=== PATIENT | male | born 1960 | race Caucasian/White ===

== ENCOUNTER 2017-02-12 07:48 | Emergency (ER) | payer OTHER ==
[2017-02-12] MEDS ORDERED: Ketorolac Tromethamine 60 MG/2 ML VIAL ONE (08:23)
== END 2017-02-12 09:05 | disposition home or self-care (01) ==
LOC: ERS 07:48
DX: M54.5 Low back pain (principal); R20.2 Paresthesia of skin; E11.9 Type 2 diabetes mellitus without complications; M48.00 Spinal stenosis, site unspecified; E78.5 Hyperlipidemia, unspecified; I10 Essential (primary) hypertension; F32.9 Major depressive disorder, single episode, unspecified; F17.210 Nicotine dependence, cigarettes, uncomplicated; Z79.4 Long term (current) use of insulin; Z79.899 Other long term (current) drug therapy
CPT/HCPCS: 96372; J1885

== ENCOUNTER 2017-03-26 12:41 | Observation (INO) | payer OTHER ==
[2017-03-26] MEDS ORDERED: Ondansetron HCl/PF 4 MG/2 ML Vial ONE (13:18)
[2017-03-26] MEDS ORDERED: Morphine 4 MG/ML VIAL ONE (13:18)
[2017-03-26 13:30] LABS: #Basophils 0.1 thou/uL (0.0-0.2); #Eosinphils 0.3 thou/uL (0.0-0.7); #Lymphocytes 3.2 thou/uL (1.20-3.40); #Monocytes 0.7 thou/uL (0.11-0.59); #Neutrophils 6.8 thou/uL (1.40-6.50); %Basophils 0.9 % (0.0-1.0); %Eosinophils 3.1 % (0.0-10.0); %Lymphocytes 28.3 % (21.0-51.0); %Monocytes 6.6 % (0.0-10.0); Mean Platelet Volume 6.6 fL (7.4-10.4); Red Blood Cell (RBC) Count 4.42 mill/uL (4.70-6.10); White Blood Cell (WBC) Count 11.2 thou/uL (4.8-10.8)
[2017-03-26] MEDS ORDERED: Iopamidol 370 76% 100 ML VIAL ONE (13:37)
--- NOTE | 2017-03-26 13:40 | RAD ---
PORTABLE CHEST: History Chest pain, tachycardia. FINDINGS: Heart size is within normal limits. There are unremarkable-appearing mediastinal structures. The haley ngs are clear of infiltrates. IMPRESSION: No active intrathoracic disease. POS: [facility]
[2017-03-26 13:58] LABS: ALT (SGPT) 12 U/L (8-55); AST (SGOT) 13 U/L (5-34); Alkaline Phosphatase 89 U/L (40-150); Anion Gap 12 mmol/L (10-20); BUN (Urea Nitrogen) 15 mg/dL (8.4-25.7); Bilirubin, Total 0.5 mg/dL (0.2-1.2); CK (CPK) 47 U/L (30-200); Calc. Creatinine Clearance 0 mL/min (70-130); Carbon Dioxide 30 mmol/L (22-29); Chloride 98 mmol/L (98-107); Estimated GFR-MDRD Greater than 90; Globulin 3.9 g/dL (2.4-3.5); Lipase Less than 4 U/L (8-78); Protein, Total 8.1 g/dL (6.0-8.3)
[2017-03-26 13:59] LABS: Troponin I Less than 0.010 ng/mL (< 0.028)
[2017-03-26 15:22] LABS: Bilirubin Negative (Negative); Blood, Urine Trace (Negative); Glucose, Urine (Dipstick) Negative (Negative); Ketone, Urine Negative (Negative); Nitrite Negative (Negative); Protein, Urine (Dipstick) Negative (Neg-Trace); Urobilinogen 0.2 mg/dL (0.2-1.0)
[2017-03-26 15:23] LABS: Acetaminophen Less than 6.0 mcg/mL (10.0-30.0); Salicylate Less than 8.0 mg/dL (15.0-30.0)
[2017-03-26 15:35] LABS: Amphetamine Detected (NotDetected); Methadone Not Detected (NotDetected); Methamphetamine Detected (NotDetected)
[2017-03-26 15:38] LABS: Bacteria/HPF None Seen HPF (None Seen); Hyaline Casts/LPF 0-3 HYALINE CAST LPF (0-3 Hyaline); RBC/HPF 0-3 HPF (0-3); WBC/HPF 0-3 HPF (0-3)
--- NOTE | 2017-03-26 15:47 | CT ---
CT ANGIO OF CHEST AND ABDOMEN PERFORMED WITH INTRAVENOUS CONTRAST ENHANCEMENT WITH 3D RECONSTRUCTIONS : 03/26/17 HISTORY: Abdominal pain. Pain to posterior neck and back. The lungs show subsegmental atelectatic changes in the bases. There is also some linear atelectasis o r scar in the lingula. There is no pulmonary nodules or pleural effusions. There is no significant hi lar or mediastinal or axillary adenopathy. There is fairly good pulmonary artery opacification. No signs for central pulmonary emboli. The thora cic aorta is normal in caliber without evidence of dissection. CT ANGIO OF ABDOMEN PERFORMED WITH CONTRAST: The liver, spleen, pancreas and gallbladder regions appear unremarkable on this angiographic phase ex am. The right and left adrenal glands and right and left kidneys are normal in appearance. No significant periaortic or mesenteric adenopathy. The abdominal aorta is normal in caliber. Some atherosclerotic plaque formation seen within the right common iliac artery but no significant narrowing. IMPRESSION: No evidence of aortic aneurysm or dissection. POS: [facility]
[2017-03-26] MEDS ORDERED: Dextrose 50% Abboject 50 ML SYRINGE SLOW IVP PRN (17:04)
[2017-03-26] MEDS ORDERED: Insulin Regular 300 UNITS/3 ML VIAL SC PRN (17:04)
[2017-03-26] MEDS ORDERED: Ondansetron HCl/PF 4 MG/2 ML Vial IVP PRN (17:04)
[2017-03-26] MEDS ORDERED: Dextrose 5% in Water 1,000 ML IV PRN (17:04)
--- NOTE | 2017-03-26 17:04 | HP ---
HISTORY OF PRESENT ILLNESS: Mr. Powell is a 56-year-old man. He claims that for the las t 2-3 days he has been experimenting some epigastric discomfort, dizziness, lightheadedness every teja e he stands up. Initially, he felt that the problem was transient and he did not look for attention; however, it has been getting worse over time. He came to the ER earlier. He was found to have atyp ical chest pain. He was being admitted for evaluation and management. He denies any previous history of heart disease. He is known to have a history of hypertension, diab etes mellitus. He denies lung disease. Denies liver disease. Denies cerebrovascular accident. PAST SURGICAL HISTORY: Remarkable for lower back laminectomy. ALLERGIES: He does not have any known allergies. SOCIAL HISTORY: He has a [id number] history of cigarette smoking. He denies ETOH abuse. He does have a past history of drug abuse. FAMILY HISTORY: Reviewed and is remarkable for coronary artery disease. MEDICATIONS: Prior to admission he was on Tylenol with codeine, alprazolam, amlodipine/valsartan/hyd rochlorothiazide, escitalopram, fenofibrate, gabapentin, metformin, tizanidine, and glargine insulin. REVIEW OF SYSTEMS: Constitutional: He denies any fever. Admits to generalized weakness. HEENT: N o headache, no ocular pain, no sore throat, no rhinorrhea, no earache, no epistaxis. NECK: No neck pain, no neck stiffness. Cardiovascular: Epigastric discomfort, lightheadedness, and shortness of b reath just when standing. Pulmonary: He did have some dry cough. Gastrointestinal: Some nausea, n o diarrhea, no vomiting. Genitourinary: No dysuria, no hematuria. Musculoskeletal: Admits to arth ralgias, mainly in her lower back. Endocrinology: No heat or cold intolerance. No polyuria, polydip abhi, or polyphagia. Skin: No rash, no itching. Allergies: No hayfever. Hematology: No abnormal b leeding, no ecchymosis. Lymphatic: No palpable lymphadenopathy, no painful lymphadenopathy. Neurol ogical: No seizure. Psychiatric: Admits to anxiety, depression. PHYSICAL EXAMINATION: GENERAL: At the current time, he is alert, oriented, sick looking. LATEST VITAL SIGNS: Show temperature of 98.1, pulse rate 63, respiratory rate 14, blood pressure 129 /70. HEENT: His head is normocephalic and atraumatic. Both his pupils are equally reacting. Ears and no se normal. Oral mucosa is moist. Pharyngeal area is clear with no exudate, no hyperemia. NECK: Supple. There is no distention of the jugular vein. No lymphadenopathy felt. Thyroid gland not palpable. There is no carotid bruit. CHEST: Symmetrical with regular S1, S2. LUNGS: Clear. ABDOMEN: Soft, bowel sounds heard. I could not appreciate any organomegaly. There is no focal area of tenderness. EXTREMITIES: Limbs showed no edema. NEUROLOGIC: He moves all extremities. LABORATORY DATA: His CBC showed WBC of 11.2, hemoglobin of 13.5, hematocrit of 40, MCV of 90.4, plat elet 254. Chemistry and electrolytes show sodium of 136, potassium 3.9, chloride 98, CO2 30, BUN 15, and creatinine 0.74, glucose 163, calcium 10, total protein 0.5, AST 13, ALT 12, alkaline phosphatas e 83. CPK 47, troponin less than 0.01, total protein 8.1, albumin 4.2. Urinalysis shows specific gr avity of 1.025, pH of 6, trace blood, leukocyte esterase negative, 0-3 rbcs, 0-3 wbc, 4-6 epithelial cells, 0-3, hyaline cast. Drug screen is positive for opiates, amphetamine, methamphetamine and emmanuel odiazepine. CT of the chest is negative for dissection. Chest x-ray showed no acute infiltrate. ASSESSMENT AND PLAN: This is a 56-year-old man with history of hypertension, diabetes kayode itus, who came in with epigastric pain, dizziness, lightheadedness every time he stands up to the poi nt that he has been staying in bed for the last 2-3 days. The patient will be treated for unstable a ngina with atypical chest pain. Cardiac enzymes are in progress. We will get the stress test. Card iology consult was called. Please see orders.
[2017-03-26 17:16] VITALS: BMI 33.5
[2017-03-26 17:20] LABS: Troponin I Less than 0.010 ng/mL (< 0.028)
[2017-03-26] MEDS: Sodium Chloride 0.9% 1,000 ML IV SCH (17:41)
[2017-03-26] MEDS: Morphine 4 MG/ML VIAL SLOW IVP PRN ×2 (17:42→22:14)
[2017-03-26 17:56] LABS: Troponin I Less than 0.010 ng/mL (< 0.028)
[2017-03-26] MEDS: Metoprolol Tartrate 25 MG TAB PO SCH (20:36)
[2017-03-26] MEDS: Atorvastatin Calcium 40 MG TAB PO SCH (20:36)
[2017-03-26] MEDS: Famotidine/PF 20 mg/2ml Vial SLOW IVP SCH (20:36)
[2017-03-26] MEDS ORDERED: Non-Formulary Item 1 EACH (Insulin Glargine,Hum.Rec.Anlog 30 UNITS) SC SCH (21:00)
[2017-03-26] MEDS ORDERED: Insulin Detemir 100 UNITS/ML 30 UNITS in Pre-Filled Syringe SC SCH (21:00)
[2017-03-27] MEDS: Sodium Chloride 0.9% 1,000 ML IV SCH (06:24)
[2017-03-27] MEDS: Morphine 4 MG/ML VIAL SLOW IVP PRN ×2 (06:42→09:57)
[2017-03-27] MEDS ORDERED: Enoxaparin Sodium 40 MG/0.4 ML SYRINGE SC SCH (09:00)
--- NOTE | 2017-03-27 09:23 | PDOC.PN ---
- Subjective Encounter Start Date: 03/27/17 Encounter Start Time: 08:55 No new complaint. - Objective Resuscitation Status: Resuscitation Status FULL:Full Resuscitation Vital Signs & Weight: Vital Signs (12 hours) Temp Pulse Resp BP BP Pulse Ox 03/27/17 08:05 98.3 F 55 L 16 03/27/17 07:41 98.3 F 55 L 16 91/52 L 93 L 03/27/17 04:10 94/56 L 94 L 03/27/17 03:52 56 L 18 87/56 L 92 L Weight Weight 240 lb 12.8 oz I&O: 03/26/17 03/27/17 03/28/17 06:59 06:59 06:59 Intake Total 1269 160 Output Total 0 Balance 1269 160 Result Diagrams: 03/26/17 13:16 03/26/17 13:16 Additional Labs: Accuchecks 03/27/17 03/26/17 03/26/17 06:14 21:30 17:23 POC Glucose 112 H 176 H 127 H Phys Exam - Physical Examination HEENT: sclera anicteric Neck: no JVD Respiratory: clear to auscultation bilateral Cardiovascular: RRR Gastrointestinal: soft Musculoskeletal: no edema Neurological: moves all 4 limbs Psychiatric: A&O x 3 Dx/Plan (1) Chest pain Code(s): R07.9 - CHEST PAIN, UNSPECIFIED Status: Acute Plan: Atypical. Cardiac enzymes negative. f/u stress test. f/u with cardiology. (2) Diabetes 1.5, managed as type 2 Code(s): E10.9 - TYPE 1 DIABETES MELLITUS WITHOUT COMPLICATIONS Status: Acute Plan: on sliding scale. Comment: bs satisfactory. (3) Hypertension Code(s): I10 - ESSENTIAL (PRIMARY) HYPERTENSION Status: Chronic Comment: controlled. - Plan -: Home if stress test negative.. * .
[2017-03-27] MEDS: Atorvastatin Calcium 40 MG TAB PO SCH (14:03)
[2017-03-27] MEDS: Metoprolol Tartrate 25 MG TAB PO SCH (14:03)
[2017-03-27] MEDS: Famotidine/PF 20 mg/2ml Vial SLOW IVP SCH (14:04)
--- NOTE | 2017-03-27 15:04 | CON ---
DATE OF CONSULTATION: 03/27/2017 REASON FOR CONSULTATION: Atypical chest pain. REFERRING PROVIDER: Tito Bolton MD HISTORY OF PRESENT ILLNESS: Mr. Powell is a 56-year-old gentleman who recently presented with nonc ardiac chest pain. He states his pain began in his abdomen. It was in the upper epigastric region. No chest pain or pressure noted. He did have left arm radiation. CK and troponins were negative. Prior to my visit, a stress study had been ordered. He did also test positive for drug use. PAST MEDICAL HISTORY: Hypertension, diabetes mellitus, laminectomy. ALLERGIES: None. SOCIAL HISTORY: Positive tobacco use. HOME MEDICATIONS: Include Tylenol with codeine, alprazolam, amlodipine, valsartan, hydrochlorothiazi de, fenofibrate, gabapentin, metformin, tizanidine. REVIEW OF SYSTEMS: Ten-point review of systems is reviewed and as above, otherwise negative. PHYSICAL EXAMINATION: VITAL SIGNS: Blood pressure 112/70, pulse 80, respirations 20. GENERAL: Patient is a pleasant male who is in no acute distress. The patient appears his stated age . NEUROLOGIC: The patient is alert and oriented times 3 with no focal neurologic deficits. HEENT: Sclerae without icterus. Mouth has moist mucous membranes with normal pallor. NECK: No JVD. Carotid upstroke brisk. No bruits bilaterally. LUNGS: Clear to auscultation with unlabored respirations. BACK: No scoliosis or kyphosis. CARDIAC: Regular rate and rhythm with normal S1 and S2. No S3 or S4 noted. No significant rubs, m urmurs, thrills, or gallops noted throughout the precordium. PMI is not displaced. There is no para sternal heave. ABDOMEN: Soft, nontender, nondistended. No peritoneal signs present. No hepatosplenomegaly. No ab normal striae. EXTREMITIES: 2+ femoral and 2+ dorsalis pedis pulses. No cyanosis, clubbing, or edema. SKIN: No gross abnormalities. DIAGNOSTIC STUDIES: EKG: Normal sinus rhythm, normal EKG. Stress rest myocardial perfusion study negative for ischemia with LVEF 65%. IMPRESSION: 1. Noncardiac chest pain. 2. Illicit drug use. RECOMMENDATIONS: At this point, Mr. Powell' symptoms are not felt to be consistent with angina. H is stress study was negative for ischemia. I did general counsel him on cessation of all tobacco products an d controlling his hypertension and diabetes mellitus. Otherwise, from my standpoint, I have no furth er recommendations.
--- NOTE | 2017-03-27 16:11 | NM ---
NUCLEAR MEDICINE CARDIAC MYOCARDIAL PERFUSION SPECT EJECTION FRACTION STUDY WALL MOTION CINE: DATE: 03-27-17 HISTORY: 56-year-old male with acute chest pain. TECHNIQUE: Number of days: 1 Rest study: Tc99m sestamibi (Cardiolite) dose: 10.2 mCi Pharmacologic stress: adenosine dose: 61 mg Stress study: Tc99m sestamibi (Cardiolite) dose: 27.5 mCi FINDINGS: CARDIAC (MYOCARDIAL PERFUSION) SPECT There are no reversible myocardial perfusion defects. EJECTION FRACTION STUDY EF = 65% WALL MOTION CINE Normal. IMPRESSION: No evidence of reversible ischemia. KARIE Bazan POS: [facility]
[2017-03-27 16:18] VITALS: BP 102/54; TEMP 98.1
--- NOTE | 2017-03-27 16:44 | DIS ---
DATE OF ADMISSION: 03/26/2017 DATE OF DISCHARGE: 03/27/2017 DIAGNOSES: Chest pain, atypical; history of hypertension, and diabetes mellitus. PROCEDURES: Stress test which was negative, chest x-ray and chest CT. COURSE OF HOSPITALIZATION: Uncomplicated, responded well to management. Patient is clinically stab le, being discharged home. DISCHARGE MEDICATIONS: Please see discharge medication reconciliation sheet. We have also to mention that the patient was seen by application security engineer, Dr. Scotty Del Cid. The patient is to follow up with his primary care physician. For today's physical examination, please refer to patient's medical record progress note section.
--- NOTE | 2017-04-02 13:35 | EKG ---
Test Reason : Blood Pressure : / mmHG Vent. Rate : 110 BPM Atrial Rate : 110 BPM P-R Int : 132 ms QRS Dur : 084 ms QT Int : 340 ms P-R-T Axes : 019 -25 050 degrees QTc Int : 460 ms Sinus tachycardia Left axis deviation Otherwise normal ECG Confirmed by MARANDA TONEY, CHAU Horton ([id number]), online content editor VALERIA ALCALA ([id number]) on 04/02/2017 1:35:38 PM Referred By: Confirmed By:CHAU LOW MD
== END 2017-03-27 17:15 | disposition home or self-care (01) ==
LOC: ERS 12:41 → 2SW 16:59
PROVIDERS: ADMIT Hospitalist; ATTEND Hospitalist
DX: R07.89 Other chest pain (principal); R10.13 Epigastric pain; R42 Dizziness and giddiness; I10 Essential (primary) hypertension; E11.9 Type 2 diabetes mellitus without complications; F17.210 Nicotine dependence, cigarettes, uncomplicated; Z79.84 Long term (current) use of oral hypoglycemic drugs; Z98.890 Other specified postprocedural states
CPT/HCPCS: 36415; 36416; 71010; 71275; 78452; 80053; 80061; 80306; 80307; 81003; 81015; 82553; 83690; 84439; 84443; 84484; 85025; 93005; 93017; 96361; 96374; 96375; 96376; A9500; G0378; J0153; J1815; J2270; J2405; S0028

== ENCOUNTER 2017-04-22 07:33 | Emergency (ER) | payer OTHER ==
[2017-04-22 08:04] LABS: Bilirubin Negative (Negative); Blood, Urine Negative (Negative); Clarity CLEAR (Clear); Glucose, Urine (Dipstick) Negative (Negative); Leukocyte Negative (Negative); Nitrite Negative (Negative); Protein, Urine (Dipstick) Negative (Neg-Trace); Specific Gravity, Urine 1.012 (1.002-1.036)
[2017-04-22] MEDS ORDERED: Ketorolac Tromethamine 30 MG/ML VIAL ONE (08:05)
[2017-04-22] MEDS ORDERED: Ondansetron HCl/PF 4 MG/2 ML Vial ONE (08:05)
[2017-04-22 08:36] LABS: #Eosinphils 0.2 thou/uL (0.0-0.7); #Lymphocytes 3.4 thou/uL (1.20-3.40); #Monocytes 0.5 thou/uL (0.11-0.59); #Neutrophils 5.4 thou/uL (1.40-6.50); %Basophils 0.5 % (0.0-1.0); %Eosinophils 2.2 % (0.0-10.0); %Lymphocytes 35.2 % (21.0-51.0); %Monocytes 5.6 % (0.0-10.0); %Neutrophils 56.5 % (42.0-75.0); Mean Corpuscular HGB CONC 33.7 g/dL (32.0-36.0); Mean Corpuscular Hemoglobin 30.8 pg (27.0-31.0); Mean Corpuscular Volume 91.3 fl (80.0-94.0); Mean Platelet Volume 6.8 fL (7.4-10.4); Platelet Count 237 thou/uL (130-400); Red Blood Cell (RBC) Count 4.22 mill/uL (4.70-6.10); White Blood Cell (WBC) Count 9.6 thou/uL (4.8-10.8)
[2017-04-22 08:48] LABS: ALT (SGPT) 14 U/L (8-55); AST (SGOT) 15 U/L (5-34); Albumin 4.3 g/dL (3.5-5.0); Alkaline Phosphatase 89 U/L (40-150); Anion Gap 12 mmol/L (10-20); BUN (Urea Nitrogen) 18 mg/dL (8.4-25.7); Bilirubin, Total 0.5 mg/dL (0.2-1.2); Calc. Creatinine Clearance 0 mL/min (70-130); Calcium 10.5 mg/dL (7.8-10.44); Carbon Dioxide 30 mmol/L (22-29); Chloride 98 mmol/L (98-107); Estimated GFR-MDRD Greater than 90; Globulin 3.8 g/dL (2.4-3.5); Glucose 168 mg/dL (70-105); Lipase 8 U/L (8-78); Potassium 3.8 mmol/L (3.5-5.1); Protein, Total 8.1 g/dL (6.0-8.3); Sodium 136 mmol/L (136-145)
--- NOTE | 2017-04-22 09:16 | CT ---
CT ABDOMEN AND PELVIS WITHOUT CONTRAST STONE PROTOCOL: HISTORY: Abdominal pain. Back pain. COMPARISON: CT aortic dissection protocol, 03/26/2017. FINDINGS: The lung bases are clear. No pericardial effusion. Moderate coronary artery calcifications. No nephroureterolithiasis or hydroureteronephrosis. No secondary evidence of a recently passed stone . A few calculi of the pancreatic tail and body. No abdominal wall hernia. No dilated loops of large or small bowel. Incidental note is made of a sp lenule. The appendix is visualized and is normal. Noncontrast evaluation of the liver and gallbladder is unremarkable. The aortoiliac contour is nonan eurysmal. No adenopathy. Mild facet arthropathy of the lumbar spine. Mild degenerative changes of both hips. IMPRESSION: 1. No nephroureterolithiasis or hydroureteronephrosis. No secondary evidence of a recently passed s tone. 2. No acute inflammatory process of the abdomen or pelvis. POS: [facility]
== END 2017-04-22 09:22 ==
LOC: ERS 07:33
DX: R10.84 Generalized abdominal pain (principal); F15.10 Other stimulant abuse, uncomplicated; E11.9 Type 2 diabetes mellitus without complications; E78.5 Hyperlipidemia, unspecified; I10 Essential (primary) hypertension; F32.9 Major depressive disorder, single episode, unspecified; F17.210 Nicotine dependence, cigarettes, uncomplicated; Z79.4 Long term (current) use of insulin; Z79.899 Other long term (current) drug therapy
CPT/HCPCS: 36415; 74176; 80053; 81003; 83605; 83690; 85025; 96361; 96374; 96375; J1885; J2405

== ENCOUNTER 2017-09-14 23:33 | Emergency (ER) | payer OTHER ==
[2017-09-15] MEDS ORDERED: Morphine 4 MG/ML VIAL ONE (00:22)
[2017-09-15 00:25] LABS: #Eosinphils 0.2 thou/uL (0.0-0.7); #Lymphocytes 3.4 thou/uL (1.20-3.40); #Monocytes 0.8 thou/uL (0.11-0.59); #Neutrophils 5.5 thou/uL (1.40-6.50); %Basophils 0.3 % (0.0-1.0); %Eosinophils 2.4 % (0.0-10.0); %Lymphocytes 33.8 % (21.0-51.0); %Monocytes 8.3 % (0.0-10.0); %Neutrophils 55.1 % (42.0-75.0); Hemoglobin 13.5 g/dL (14.0-18.0); Mean Corpuscular HGB CONC 34.5 g/dL (32.0-36.0); Mean Corpuscular Hemoglobin 30.5 pg (27.0-31.0); Mean Corpuscular Volume 88.4 fl (80.0-94.0); Platelet Count 293 thou/uL (130-400); Red Blood Cell (RBC) Count 4.44 mill/uL (4.70-6.10)
[2017-09-15 00:49] LABS: ALT (SGPT) 14 U/L (8-55); AST (SGOT) 13 U/L (5-34); Albumin 4.3 g/dL (3.5-5.0); Alkaline Phosphatase 114 U/L (40-150); Anion Gap 15 mmol/L (10-20); BUN (Urea Nitrogen) 15 mg/dL (8.4-25.7); Bilirubin, Total 0.6 mg/dL (0.2-1.2); Calc. Creatinine Clearance 0 mL/min (70-130); Calcium 9.8 mg/dL (7.8-10.44); Carbon Dioxide 27 mmol/L (22-29); Chloride 99 mmol/L (98-107); Estimated GFR-MDRD Greater than 90; Globulin 3.9 g/dL (2.4-3.5); Glucose 140 mg/dL (70-105); Potassium 3.5 mmol/L (3.5-5.1); Protein, Total 8.2 g/dL (6.0-8.3); Sodium 137 mmol/L (136-145)
[2017-09-15 01:02] LABS: CKMB 2.6 ng/mL (0-6.6); Troponin I Less than 0.010 ng/mL (< 0.028)
[2017-09-15 01:25] LABS: Bilirubin Negative (Negative); Blood, Urine Negative (Negative); Clarity CLEAR (Clear); Glucose, Urine (Dipstick) Negative (Negative); Leukocyte Negative (Negative); Nitrite Negative (Negative); Protein, Urine (Dipstick) Negative (Neg-Trace); Specific Gravity, Urine 1.004 (1.002-1.036); Urobilinogen 0.2 mg/dL (0.2-1.0); pH, Urine 7.5 (5.0-9.0)
[2017-09-15 02:01] LABS: Amphetamine Not Detected (NotDetected); Barbiturates Screen Not Detected (NotDetected); Benzodiazepine Screen Not Detected (NotDetected); Cocaine Metabolite Screen Not Detected (NotDetected); Medtox Control Line Valid? VALID (VALID); Medtox Reader # READER 4; Methadone Not Detected (NotDetected); Methamphetamine Detected (NotDetected); Opiate Screen Detected (NotDetected); Oxycodone Screen Not Detected (NotDetected); Phencyclidine (PCP) Not Detected (NotDetected); THC/Cannabinoid Screen Not Detected (NotDetected); Tricyclic Screen Not Detected (NotDetected)
--- NOTE | 2017-09-15 08:52 | RAD ---
CHEST 1 VIEW: Date: 09/15/17 HISTORY: Pain. COMPARISON: 03/26/17. FINDINGS: Normal cardiac silhouette. Pulmonary vessels and hilum are normal. Costophrenic angles are clear. No masses or consolidation. No pneumothorax or osseous abnormalities. IMPRESSION: No acute cardiopulmonary process. POS: [facility]
--- NOTE | 2017-09-15 11:55 | ULT ---
PRELIMINARY REPORT/[facility]/EMERGENTY AFTER-HOURS PROCEDURE US Abdomen Limited, Right Upper Quadrant CLINICAL HISTORY: 56 years old, male; Pain and signs and symptoms; Nausea and other: Diarrhea; Abdominal pain; Localize d; Right upper quadrant (ruq) TECHNIQUE: Real-time ultrasound of the right upper quadrant with image documentation. COMPARISON: No relevant prior studies available. FINDINGS: Liver: No acute findings. No mass. No intrahepatic bile duct dilation. Gallbladder: No acute findings. No gallstones. Common bile duct: Unremarkable as visualized. 5 mm. No stones. No dilation. Pancreas: Obscured by bowel gas. Right kidney: No acute findings. 10.9 cm. No stones. No solid mass. No hydronephrosis. IMPRESSION: No acute disease identified. Thank you for allowing us to participate in the care of your patient. Dictated and Authenticated by: Karina Walker MD 09/15/2017 1:32 AM Central Time ([place] & [place]) FINAL REPORT RIGHT UPPER QUADRANT ULTRASOUND: Date: 09/15/17 COMPARISON: None. HISTORY: Diarrhea, weakness, and right upper quadrant pain. FINDINGS: I agree with the preliminary report given by [facility]. Pancreas is obscured by bowel gas. Hepatic parench yma is mildly heterogeneous and echogenic, which may signify steatosis. Right kidney measures 10.9 cm in craniocaudal dimension and demonstrates no stone, hydronephrosis, or mass lesion. The common bile duct measures 5.0 mm, within normal limits. No gallbladder wall thickening, perichole cystic fluid, or gallstones noted. IMPRESSION: No acute findings. POS: [facility]
--- NOTE | 2017-09-15 11:56 | CT ---
PRELIMINARY REPORT/[facility]/EMERGENTY AFTER-HOURS PROCEDURE CT Abdomen and Pelvis With Intravenous Contrast CLINICAL HISTORY: 56 years old, male; Pain; Abdominal pain; Right upper quadrant (ruq); TECHNIQUE: Axial computed tomography images of the abdomen and pelvis with intravenous contrast. COMPARISON: US - OB 2017-09-15 00:35 FINDINGS: Lung bases: No acute findings. No mass. No consolidation. ABDOMEN: Liver: Liver is enlarged at 19 cm. No solid mass is identified. Gallbladder and bile ducts: No acute findings. No calcified stones. No ductal dilation. Pancreas: No acute findings. No mass. No ductal dilation. Spleen: No acute findings. No splenomegaly. Adrenals: No acute findings. No mass. Kidneys and ureters: No acute findings. No solid mass. No hydronephrosis. Stomach and bowel: There is moderate colonic fecal retention. No obstruction. No mucosal thickening. PELVIS: Appendix: The appendix is not visualized. Bladder: Mild apparent wall thickening although bladder not well distended. No mass. Reproductive: Unremarkable as visualized. ABDOMEN and PELVIS: Intraperitoneal space: No acute findings. No free air. No significant fluid collection. Bones/joints: Chronic degenerative spinal changes without acute fracture or dislocation. Soft tissues: Small to moderate fat and fluid containing right inguinal hernia. Vasculature: No acute findings. No abdominal aortic aneurysm. Lymph nodes: No acute findings. No enlarged lymph nodes. IMPRESSION: Fat and fluid containing right inguinal hernia. Hepatomegaly. Fecal retention. Mild apparent bladder wall thickening although bladder not well distended. Findings likely artifactua l although cystitis cannot be excluded. Thank you for allowing us to participate in the care of your patient. Dictated and Authenticated by: Karina Walker MD 09/15/2017 2:21 AM Central Time ([place] & [place]) FINAL REPORT ABDOMEN CT WITH CONTRAST PELVIC CT WITH CONTRAST: Date: 09/15/17 HISTORY: Abdominal pain. Right upper quadrant pain. Diarrhea. Weakness. TECHNIQUE: Abdomen and pelvic CT are performed with IV contrast. Enteric contrast was not administered. Coronal reformatted images are submitted for interpretation. FINDINGS: This report is in agreement with the preliminary report by [facility]. Mild hepatomegaly and fecal retentio n. Correlate clinically for constipation. There is nonspecific urinary bladder wall thickening which may in part be due to inadequate distention. Correlate clinically for cystitis. There appears to be a small amount of fluid which may be in the right hemiscrotum, likely due to hydrocele. No evidence of bowel obstruction. Appendix is not visualized. No inflammation of the cecal apex. POS: [facility]
== END 2017-09-15 04:23 | disposition home or self-care (01) ==
LOC: ERS 23:33
DX: K40.90 Unilateral inguinal hernia, without obstruction or gangrene, not specified as recurrent (principal); E11.9 Type 2 diabetes mellitus without complications; E78.5 Hyperlipidemia, unspecified; I10 Essential (primary) hypertension; M48.00 Spinal stenosis, site unspecified; F32.9 Major depressive disorder, single episode, unspecified; F17.210 Nicotine dependence, cigarettes, uncomplicated; Z79.899 Other long term (current) drug therapy; Z79.4 Long term (current) use of insulin
CPT/HCPCS: 36415; 71045; 74177; 76705; 80053; 80306; 81003; 82553; 83605; 83690; 83880; 84484; 85025; 93005; 96361; 96374; J2270

== ENCOUNTER 2017-11-01 07:06 | Emergency (ER) | payer OTHER ==
[2017-11-01] MEDS ORDERED: Adacel (T-DAP) 0.5 ML VIAL ONE (07:20)
[2017-11-01] MEDS ORDERED: Lidocaine 1% w/Epinephrine 1:100K 20 ML VIAL ONE (07:31)
[2017-11-01] MEDS ORDERED: Sodium Bicarbonate 2.5 MEQ/5 ML VIAL ONE (07:33)
[2017-11-01] MEDS ORDERED: Amoxicillin/Potassium Clav 875 MG TAB ONE (07:33)
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
[2017-11-01] MEDS ORDERED: Bacitracin Zinc 1 Packet ONE (09:28)
== END 2017-11-01 11:11 | disposition home or self-care (01) ==
LOC: ERS 07:06
DX: S61.511A Laceration without foreign body of right wrist, initial encounter (principal); S16.1XXA Strain of muscle, fascia and tendon at neck level, initial encounter; S60.212A Contusion of left wrist, initial encounter; S00.01XA Abrasion of scalp, initial encounter; E11.9 Type 2 diabetes mellitus without complications; E78.5 Hyperlipidemia, unspecified; I10 Essential (primary) hypertension; F32.9 Major depressive disorder, single episode, unspecified; F17.210 Nicotine dependence, cigarettes, uncomplicated; Z79.899 Other long term (current) drug therapy; Z79.4 Long term (current) use of insulin; Z23 Encounter for immunization
CPT/HCPCS: 12002; 70450; 72125; 90471; 90715; J2001

== ENCOUNTER 2017-12-25 22:25 | Emergency (ER) | payer OTHER ==
[2017-12-25] MEDS ORDERED: Ketorolac Tromethamine 30 MG/ML VIAL ONE (23:02)
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
== END 2017-12-26 00:25 | disposition home or self-care (01) ==
LOC: ERS 22:25
DX: S22.42XA Multiple fractures of ribs, left side, initial encounter for closed fracture (principal); F15.10 Other stimulant abuse, uncomplicated; E11.9 Type 2 diabetes mellitus without complications; E78.5 Hyperlipidemia, unspecified; I10 Essential (primary) hypertension; F32.9 Major depressive disorder, single episode, unspecified; F17.210 Nicotine dependence, cigarettes, uncomplicated; Z79.84 Long term (current) use of oral hypoglycemic drugs; Z76.5 Malingerer [conscious simulation]; Z79.899 Other long term (current) drug therapy; Y08.89XA Assault by other specified means, initial encounter
CPT/HCPCS: 71046; 72072; 96372; J1885

== ENCOUNTER 2018-08-24 22:32 | Emergency (ER) | payer OTHER ==
[2018-08-24] MEDS ORDERED: Adacel (T-DAP) 0.5 ML SYRINGE ONE (22:56)
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
[2018-08-24] MEDS ORDERED: HYDROcodone/Acetaminophen 10/325 mg Tablet ONE (23:41)
[2018-08-24] MEDS ORDERED: Lidocaine 1% (PF) 30 ML VIAL ONE (23:41)
[2018-08-25] MEDS ORDERED: Morphine 10 MG/ML VIAL ONE (00:17)
== END 2018-08-25 02:34 | disposition home or self-care (01) ==
LOC: ERS 22:32
DX: S51.811A Laceration without foreign body of right forearm, initial encounter (principal); E11.9 Type 2 diabetes mellitus without complications; E78.5 Hyperlipidemia, unspecified; F32.9 Major depressive disorder, single episode, unspecified; F17.210 Nicotine dependence, cigarettes, uncomplicated; W25.XXXA Contact with sharp glass, initial encounter
CPT/HCPCS: 12004; 90471; 90715; 96372; 99406; J2001; J2270

== ENCOUNTER 2019-12-21 16:03 | Emergency (ER) | payer OTHER ==
--- NOTE | 2019-12-21 17:09 | RAD ---
Chest AP view INDICATION: Back pain and arm pain COMPARISON: November 30, 2017 FINDINGS: Lungs: The lungs are clear Cardiac silhouette: The cardiomediastinal silhouette appears within normal limits. Pulmonary vasculature: Normal Pleural spaces: No pleural effusion or pneumothorax is demonstrated. Upper abdomen: No abnormality seen. Osseous structures: No acute osseous abnormality. Additional findings: None. IMPRESSION: No acute cardiopulmonary abnormality.
[2019-12-21 17:12] LABS: #Eosinphils 0.2 thou/uL (0.0-0.7); #Lymphocytes 2.8 thou/uL (1.20-3.40); #Monocytes 0.6 thou/uL (0.11-0.59); %Basophils 0.3 % (0.0-1.0); %Eosinophils 2.2 % (0.0-10.0); %Lymphocytes 36.9 % (21.0-51.0); %Monocytes 7.7 % (0.0-10.0); %Neutrophils 52.9 % (42.0-75.0); Hemoglobin 14.1 g/dL (14.0-18.0); Mean Corpuscular Hemoglobin 32.5 pg (27.0-31.0); Mean Corpuscular Volume 92.8 fL (78.0-98.0); Mean Platelet Volume 9.6 fL (7.4-10.4); Platelet Count 236 thou/uL (130-400); RBC Distribution Width 11.7 % (11.5-14.5); Red Blood Cell (RBC) Count 4.34 mill/uL (4.70-6.10); White Blood Cell (WBC) Count 7.5 thou/uL (4.8-10.8)
[2019-12-21] MEDS ORDERED: Nitroglycerin 2% Ointment 1 INCH/1 GM Packet ONE (17:34)
[2019-12-21 18:46] LABS: ALT (SGPT) 13 U/L (8-55); AST (SGOT) 18 U/L (5-34); Albumin 4.5 g/dL (3.5-5.0); Alkaline Phosphatase 90 U/L (40-110); Anion Gap 11 mmol/L (10-20); BUN (Urea Nitrogen) 24 mg/dL (8.4-25.7); Bilirubin, Total 0.7 mg/dL (0.2-1.2); Calc. Creatinine Clearance 0 mL/min (70-130); Calcium 9.1 mg/dL (7.8-10.44); Carbon Dioxide 30 mmol/L (22-29); Chloride 103 mmol/L (98-107); Estimated GFR-MDRD 78; Globulin 3.3 g/dL (2.4-3.5); Glucose 105 mg/dL (70-105); Potassium 3.7 mmol/L (3.5-5.1); Protein, Total 7.8 g/dL (6.0-8.3); Sodium 140 mmol/L (136-145)
== END 2019-12-21 19:07 | disposition left against medical advice (07) ==
LOC: ERS 16:03
DX: R07.9 Chest pain, unspecified (principal); R94.31 Abnormal electrocardiogram [ECG] [EKG]; E11.9 Type 2 diabetes mellitus without complications; E78.5 Hyperlipidemia, unspecified; E78.00 Pure hypercholesterolemia, unspecified; I10 Essential (primary) hypertension; F41.9 Anxiety disorder, unspecified; F32.9 Major depressive disorder, single episode, unspecified; F17.210 Nicotine dependence, cigarettes, uncomplicated
CPT/HCPCS: 36415; 71045; 80053; 84484; 85025; 93005

== ENCOUNTER 2019-12-21 21:52 | Emergency (ER) | payer OTHER ==
[~2019-12-21 21:52] MED LIST: Iopamidol-370 76% 500 ML 1 ML ONE
[2019-12-21 23:14] LABS: ALT (SGPT) 13 U/L (8-55); AST (SGOT) 26 U/L (5-34); Albumin 4.1 g/dL (3.5-5.0); Alkaline Phosphatase 79 U/L (40-110); Anion Gap 14 mmol/L (10-20); BUN (Urea Nitrogen) 25 mg/dL (8.4-25.7); Bilirubin, Total 0.8 mg/dL (0.2-1.2); CK (CPK) 282 U/L (30-200); Calc. Creatinine Clearance 0 mL/min (70-130); Calcium 8.8 mg/dL (7.8-10.44); Carbon Dioxide 25 mmol/L (22-29); Chloride 105 mmol/L (98-107); Estimated GFR-MDRD 81; Globulin 3.6 g/dL (2.4-3.5); Glucose 113 mg/dL (70-105); Potassium 4.8 mmol/L (3.5-5.1); Protein, Total 7.7 g/dL (6.0-8.3); Sodium 139 mmol/L (136-145)
[2019-12-21] MEDS ORDERED: Ketorolac Tromethamine 30 MG/ML VIAL ONE (23:50)
[2019-12-21] MEDS ORDERED: Nitroglycerin 0.4 MG TAB 1 EACH ONE (23:50)
--- NOTE | 2019-12-22 09:10 | CT ---
CT ANGIOGRAM CHEST AND ABDOMEN WITH IV CONTRAST AND 3D MIP RECONSTRUCTIONS: Date: 12/21/2019 PROVIDED CLINICAL HISTORY: Left arm and shoulder pain. FINDINGS: Comparison with 03/26/2017. There is no evidence for aortic dissection. There is no evidence for large central pulmonary embolus. Vascular calcification including conspicuous coronary calcium is demonstrated. The airway appears pa tent and of normal caliber. The lungs are free of significant opacity. There is no pleural fluid or p neumothorax apparent. The solid abdominal organs demonstrate no significant abnormality. There is no bowel dilatation, infl ammatory fat stranding, free fluid, or lymph node enlargement within the abdomen. The abdominal aorta is nonaneurysmal. The mesenteric and renal vessels appear unremarkable as visualized. The osseous structures demonstrate no concerning lytic or blastic lesions. IMPRESSION: 1. No evidence for aortic dissection. 2. Conspicuous coronary calcium. POS: [facility]
== END 2019-12-22 00:11 | disposition left against medical advice (07) ==
LOC: ERS 21:52
DX: R07.9 Chest pain, unspecified (principal); R94.31 Abnormal electrocardiogram [ECG] [EKG]; F41.9 Anxiety disorder, unspecified; F32.9 Major depressive disorder, single episode, unspecified; F17.210 Nicotine dependence, cigarettes, uncomplicated; E78.5 Hyperlipidemia, unspecified; E78.00 Pure hypercholesterolemia, unspecified; I10 Essential (primary) hypertension; E11.9 Type 2 diabetes mellitus without complications
CPT/HCPCS: 71045; 71275; 72191; 74175; 80053; 82550; 84484; 85025; 93005; 96374; J1885; Q9967

== ENCOUNTER 2020-01-07 04:47 | Emergency (ER) | payer OTHER ==
[2020-01-07] MEDS ORDERED: Ketorolac Tromethamine 30 MG/ML VIAL ONE ×2 (05:19)
== END 2020-01-07 05:33 | disposition home or self-care (01) ==
LOC: ERS 04:47
DX: M79.602 Pain in left arm (principal); E11.9 Type 2 diabetes mellitus without complications; E78.5 Hyperlipidemia, unspecified; E78.00 Pure hypercholesterolemia, unspecified; I10 Essential (primary) hypertension; F41.9 Anxiety disorder, unspecified; F32.9 Major depressive disorder, single episode, unspecified; F17.210 Nicotine dependence, cigarettes, uncomplicated
CPT/HCPCS: 93005; 96372; J1885

== ENCOUNTER 2021-04-15 18:04 | Inpatient (IN) | payer OTHER ==
[2021-04-15] MEDS ORDERED: Morphine 4 MG/ML VIAL ONE (18:59)
[2021-04-15] MEDS ORDERED: Acetaminophen 500 MG TAB ONE (18:59)
[2021-04-15] MEDS ORDERED: Cefepime 2 GM VIAL ONE (18:59)
[2021-04-15] MEDS ORDERED: Vancomycin 1 GM/200 ML BAG ONE (19:00)
[2021-04-15 19:12] LABS: #Eosinphils 0.3 thou/uL (0.0-0.7); #Lymphocytes 2.2 thou/uL (1.20-3.40); #Monocytes 0.6 thou/uL (0.11-0.59); #Neutrophils 3.9 thou/uL (1.40-6.50); %Basophils 0.3 % (0.0-1.0); %Eosinophils 3.6 % (0.0-10.0); %Lymphocytes 31.9 % (21.0-51.0); %Monocytes 8.4 % (0.0-10.0); %Neutrophils 55.8 % (42.0-75.0); Hemoglobin 13.1 g/dL (14.0-18.0); Mean Corpuscular HGB CONC 34.5 g/dL (32.0-36.0); Mean Corpuscular Hemoglobin 32.2 pg (27.0-31.0); Mean Corpuscular Volume 93.3 fL (78.0-98.0); Mean Platelet Volume 6.9 fL (7.4-10.4); Platelet Count 230 thou/uL (130-400); RBC Distribution Width 11.3 % (11.5-14.5); Red Blood Cell (RBC) Count 4.08 mill/uL (4.70-6.10)
[2021-04-15 19:28] LABS: Prothrombin Time 13.7 sec (12.0-14.7)
[2021-04-15 19:29] LABS: PTT 34.9 sec (22.9-36.1)
[2021-04-15 19:50] LABS: ALT (SGPT) 16 U/L (8-55); AST (SGOT) 13 U/L (5-34); Alkaline Phosphatase 91 U/L (40-110); Anion Gap 14 mmol/L (10-20); BUN (Urea Nitrogen) 13 mg/dL (8.4-25.7); Bilirubin, Total 0.7 mg/dL (0.2-1.2); Calc. Creatinine Clearance 0 mL/min (70-130); Calcium 9.7 mg/dL (7.8-10.44); Carbon Dioxide 30 mmol/L (22-29); Chloride 102 mmol/L (98-107); Globulin 3.5 g/dL (2.4-3.5); Glucose 158 mg/dL (70-105); Potassium 5.2 mmol/L (3.5-5.1); Protein, Total 7.5 g/dL (6.0-8.3); Sodium 141 mmol/L (136-145)
[2021-04-15] MEDS ORDERED: Calcium Carbonate 500 MG ChewTAB PO PRN (20:46)
[2021-04-15] MEDS ORDERED: Acetaminophen 650 MG Suppository PR PRN (20:46)
[2021-04-15] MEDS ORDERED: Dextrose 50% Abboject 50 ML SYRINGE SLOW IVP PRN (20:46)
[2021-04-15] MEDS ORDERED: Ondansetron ODT 4 MG TAB PO PRN (20:46)
[2021-04-15] MEDS ORDERED: Ondansetron PF 4 MG/2 ML Vial IVP PRN (20:46)
[2021-04-15] MEDS ORDERED: Acetaminophen 325 MG TAB PO PRN (20:46)
[2021-04-15] MEDS ORDERED: Dextrose 5% in Water 1,000 ML IV PRN (20:46)
[2021-04-15] MEDS ORDERED: HumaLOG 300 UNITS/3 ML VIAL SC PRN ×2 (20:49)
[2021-04-15] MEDS ORDERED: Labetalol HCl 100 MG/20 ML VIAL SLOW IVP PRN (20:58)
[2021-04-15] MEDS ORDERED: hydrALAZINE 20 MG/ML VIAL SLOW IVP PRN (20:58)
[2021-04-15 21:30] LABS: Hemoglobin A1c 6.3 % (4.0-6.0)
[2021-04-15] MEDS: Lisinopril 20 MG TAB PO SCH (22:39)
[2021-04-15 22:51] LABS: Lactic Acid 1.4 mmol/L (0.5-2.2)
[2021-04-15 23:02] VITALS: BMI 30.9
[2021-04-16] MEDS ORDERED: Vancomycin 1 GM in Premix Bag 1 BAG IVPB SCH (01:00)
[2021-04-16] MEDS ORDERED: Ibuprofen 800 MG TAB PO PRN (04:36)
[2021-04-16] MEDS ORDERED: Cefepime 1 GM in Sodium Chloride 0.9% 100 ML IVPB SCH (06:00)
[2021-04-16] MEDS ORDERED: Acetaminophen 500 MG TAB PO SCH (06:00)
[2021-04-16] MEDS: Ibuprofen 800 MG TAB PO SCH ×3 (06:08→21:31)
[2021-04-16 07:15] LABS: #Basophils 0.1 thou/uL (0.0-0.2); #Eosinphils 0.3 thou/uL (0.0-0.7); #Monocytes 0.6 thou/uL (0.11-0.59); #Neutrophils 2.3 thou/uL (1.40-6.50); %Eosinophils 5.5 % (0.0-10.0); %Lymphocytes 38.1 % (21.0-51.0); %Monocytes 11.1 % (0.0-10.0); %Neutrophils 44.4 % (42.0-75.0); Mean Corpuscular HGB CONC 31.7 g/dL (32.0-36.0); Mean Corpuscular Hemoglobin 30.3 pg (27.0-31.0); Mean Corpuscular Volume 95.6 fL (78.0-98.0); Mean Platelet Volume 7.3 fL (7.4-10.4); Platelet Count 203 thou/uL (130-400); RBC Distribution Width 11.4 % (11.5-14.5); Red Blood Cell (RBC) Count 3.96 mill/uL (4.70-6.10); White Blood Cell (WBC) Count 5.2 thou/uL (4.8-10.8)
[2021-04-16 07:33] LABS: Anion Gap 10 mmol/L (10-20); BUN (Urea Nitrogen) 12 mg/dL (8.4-25.7); Calc. Creatinine Clearance 151 mL/min (70-130); Calcium 8.8 mg/dL (7.8-10.44); Carbon Dioxide 29 mmol/L (22-29); Chloride 103 mmol/L (98-107); Glucose 126 mg/dL (70-105); Sodium 138 mmol/L (136-145)
[2021-04-16] MEDS: Acetaminophen 500 MG TAB PO SCH ×2 (09:53→17:56)
[2021-04-16] MEDS: Enoxaparin Sodium 40 MG/0.4 ML SYRINGE SC SCH (09:54)
[2021-04-16] MEDS ORDERED: metFORMIN 500 MG TAB PO SCH (11:00)
[2021-04-16 11:27] LABS: SARS-CoV-2 PCR by NAA Not Detected (NotDetected)
[2021-04-16] MEDS ORDERED: Clindamycin 150 MG CAP PO SCH (12:00)
[2021-04-16] MEDS ORDERED: VANCOMYCIN 2 GRAM/400 ML BAG 2 GM in Premix Bag 1 BAG IVPB SCH (13:00)
[2021-04-16] MEDS ORDERED: Lorazepam 2 MG/ML VIAL SLOW IVP SCH (16:00)
[2021-04-16] MEDS: VANCOMYCIN 2 GRAM/400 ML BAG 2 GM in Premix Bag 1 BAG IVPB SCH (17:12)
[2021-04-16] MEDS ORDERED: Ciprofloxacin 500 MG TAB PO SCH (20:00)
[2021-04-16] MEDS: Lisinopril 20 MG TAB PO SCH (21:17)
[2021-04-16] MEDS: Cefepime 2 GM in Sodium Chloride 0.9% 100 ML IVPB SCH (21:17)
[2021-04-17] MEDS: Acetaminophen 500 MG TAB PO SCH ×2 (02:09→08:14)
[2021-04-17] MEDS: VANCOMYCIN 2 GRAM/400 ML BAG 2 GM in Premix Bag 1 BAG IVPB SCH (04:42)
[2021-04-17 07:15] LABS: #Eosinphils 0.3 thou/uL (0.0-0.7); #Lymphocytes 2.2 thou/uL (1.20-3.40); #Monocytes 0.6 thou/uL (0.11-0.59); #Neutrophils 3.9 thou/uL (1.40-6.50); %Basophils 0.6 % (0.0-1.0); %Eosinophils 4.5 % (0.0-10.0); %Lymphocytes 30.8 % (21.0-51.0); %Monocytes 8.2 % (0.0-10.0); %Neutrophils 55.8 % (42.0-75.0); Hemoglobin 12.5 g/dL (14.0-18.0); Mean Corpuscular HGB CONC 33.8 g/dL (32.0-36.0); Mean Corpuscular Hemoglobin 32.1 pg (27.0-31.0); Mean Platelet Volume 7.1 fL (7.4-10.4); Platelet Count 219 thou/uL (130-400); RBC Distribution Width 11.4 % (11.5-14.5); White Blood Cell (WBC) Count 7.1 thou/uL (4.8-10.8)
[2021-04-17 07:24] VITALS: BP 160/88; TEMP 97.8
[2021-04-17 07:33] LABS: Anion Gap 10 mmol/L (10-20); BUN (Urea Nitrogen) 18 mg/dL (8.4-25.7); Calc. Creatinine Clearance 139 mL/min (70-130); Calcium 9.2 mg/dL (7.8-10.44); Carbon Dioxide 30 mmol/L (22-29); Chloride 102 mmol/L (98-107); Glucose 133 mg/dL (70-105); Potassium 4.3 mmol/L (3.5-5.1); Sodium 138 mmol/L (136-145)
[2021-04-17] MEDS ORDERED: metFORMIN 500 MG TAB PO SCH ×2 (08:00)
[2021-04-17] MEDS: Ibuprofen 800 MG TAB PO SCH (08:15)
[2021-04-17] MEDS: Enoxaparin Sodium 40 MG/0.4 ML SYRINGE SC SCH (08:16)
[2021-04-17] MEDS: Cefepime 2 GM in Sodium Chloride 0.9% 100 ML IVPB SCH (08:17)
[2021-04-17] MEDS ORDERED: Vancomycin 1 GM in Premix Bag 1 BAG IVPB SCH (09:00)
[2021-04-18] MEDS ORDERED: FLU VACC QS2021-22(6MOS UP)/PF 60 MCG/0.5 ML SYRINGE IM ONE (09:00)
== END 2021-04-17 14:12 | disposition home or self-care (01) | DRG 872 ==
LOC: ERS 18:04 → T4-A 20:03
PROVIDERS: ADMIT Emergency Medicine; ATTEND Emergency Medicine
DX: A41.9 Sepsis, unspecified organism (principal); Z20.822 Contact with and (suspected) exposure to COVID-19; L03.116 Cellulitis of left lower limb; L03.115 Cellulitis of right lower limb; I10 Essential (primary) hypertension; E11.40 Type 2 diabetes mellitus with diabetic neuropathy, unspecified; F15.10 Other stimulant abuse, uncomplicated; F17.210 Nicotine dependence, cigarettes, uncomplicated; E78.5 Hyperlipidemia, unspecified; E78.00 Pure hypercholesterolemia, unspecified; F41.9 Anxiety disorder, unspecified; F32.A Depression, unspecified
CPT/HCPCS: 36415; 36416; 80048; 80053; 83036; 83605; 85025; 85610; 85730; 87040; 93005; J0692; J1650; J2060; J2270; J3370; J3490; U0003; U0005

== ENCOUNTER 2023-03-25 04:45 | Observation (INO) | payer OTHER ==
[2023-03-25] MEDS ORDERED: Pantoprazole 40 MG VIAL ONE (05:50)
[2023-03-25] MEDS ORDERED: Ondansetron PF 4 MG/2 ML Vial ONE (05:50)
[2023-03-25] MEDS ORDERED: Lidocaine 2% Viscous Solution 10 ML, Aluminum & Magnesium Hydroxide 30 ML SSW SCH (06:00)
[2023-03-25 06:16] LABS: #Eosinphils 0.2 thou/uL (0.0-0.7); #Monocytes 0.4 thou/uL (0.11-0.59); #Neutrophils 6.2 thou/uL (1.40-6.50); %Basophils 0.1 % (0.0-1.0); %Eosinophils 2.8 % (0.0-10.0); %Lymphocytes 7.9 % (21.0-51.0); %Monocytes 5.9 % (0.0-10.0); %Neutrophils 83.2 % (42.0-75.0); Hematocrit 43.2 % (42.0-52.0); Hemoglobin 14.6 g/dL (14.0-18.0); Mean Corpuscular HGB CONC 33.8 g/dL (32.0-36.0); Mean Corpuscular Hemoglobin 30.5 pg (27.0-31.0); Mean Corpuscular Volume 90.2 fl (78.0-98.0); Mean Platelet Volume 9.4 fL (7.4-10.4); Platelet Count 178 10x3/uL (130-400); RBC Distribution Width 12.2 % (11.5-14.5); Red Blood Cell (RBC) Count 4.79 mill/uL (4.70-6.10); White Blood Cell (WBC) Count 7.5 10x3/uL (4.8-10.8)
[2023-03-25 06:44] LABS: AST (SGOT) 20 U/L (5-34); Albumin 4.2 g/dL (3.4-4.8); Anion Gap 14 mmol/L (10-20); Bilirubin, Total 0.9 mg/dL (0.2-1.2); Calc. Creatinine Clearance 0 mL/min (70-130); Calcium 9.1 mg/dL (7.8-10.44); Carbon Dioxide 28 mmol/L (23-31); Chloride 98 mmol/L (98-107); Estimated GFR 98; Globulin 3.6 g/dL (2.4-3.5); Glucose 167 mg/dL (80-115); Potassium 3.8 mmol/L (3.5-5.1); Protein, Total 7.8 g/dL (5.8-8.1); Sodium 136 mmol/L (136-145)
[2023-03-25 06:48] LABS: Troponin I Less than 0.010 ng/mL (< 0.028)
[2023-03-25 06:49] LABS: ALT (SGPT) 18 U/L (8-55); Alkaline Phosphatase 96 U/L (40-110); BUN (Urea Nitrogen) 23 mg/dL (8.4-25.7)
[2023-03-25 06:53] LABS: Acetaminophen Less than 10 mcg/mL (10.0-30.0); Alcohol Less than 10.0 mg/dL (Less than 10); Lipase 33 U/L (8-78); Magnesium 1.8 mg/dL (1.6-2.6); Salicylate Less than 8.0 mg/dL (15.0-30.0)
[2023-03-25 08:23] LABS: Troponin I Less than 0.010 ng/mL (< 0.028)
[2023-03-25 08:52] LABS: Bacteria/HPF None Seen HPF (None Seen); Bilirubin Negative (Negative); Blood, Urine Negative (Negative); CAUTI Indications for Culture Dysuria,urgency,freq; Clarity Clear (Clear); Glucose, Urine (Dipstick) Normal (Negative); Ketone, Urine Negative (Negative); Leukocyte Negative Leu/uL (Negative); Nitrite Negative (Negative); Protein, Urine (Dipstick) Negative (Neg-Trace); RBC/HPF 0-3 HPF (0-3); Specific Gravity, Urine 1.039 (1.002-1.036); Squamous Epithelial 0-3 HPF (0-3); Urobilinogen Normal mg/dL (Less than 2); WBC/HPF 0-3 HPF (0-3); pH, Urine 7.5 (5.0-9.0)
[2023-03-25 08:55] LABS: Urine Culture Reflex No No
[2023-03-25] MEDS ORDERED: Dextrose 50% Abboject 50 ML SYRINGE SLOW IVP PRN (10:19)
[2023-03-25] MEDS ORDERED: HumaLOG 300 UNITS/3 ML VIAL SC PRN (10:19)
[2023-03-25] MEDS ORDERED: Glucagon 1 MG/ML KIT IM PRN (10:19)
[2023-03-25] MEDS ORDERED: Dextrose 5% in Water 1,000 ML IV PRN (10:19)
[2023-03-25] MEDS ORDERED: Sodium Chloride 0.9% 1,000 ML IV SCH (10:30)
[2023-03-25] MEDS ORDERED: hydrALAZINE 20 MG/ML VIAL SLOW IVP PRN (11:32)
[2023-03-25 11:33] LABS: Troponin I 0.014 ng/mL (< 0.028)
[2023-03-25 11:45] VITALS: BMI 26.4
[2023-03-25] MEDS: Morphine 2 MG/ML VIAL SLOW IVP PRN ×3 (12:01→20:19)
[2023-03-25] MEDS: Sodium Chloride 0.9% 1,000 ML IV SCH (12:33)
[2023-03-25] MEDS ORDERED: Iopamidol-370 76% 500 ML MDV (1 ML CHARGE) ONE (13:27)
[2023-03-25] MEDS: Ondansetron PF 4 MG/2 ML Vial IVP PRN ×2 (14:01→20:17)
[2023-03-25] MEDS ORDERED: Acetaminophen 325 MG TAB PO PRN (17:03)
[2023-03-25] MEDS ORDERED: FLU VACC QS2023-24(6MOS UP)/PF 60 MCG/0.5 ML SYRINGE IM ONE (18:00)
[2023-03-26] MEDS: Sodium Chloride 0.9% 1,000 ML IV SCH ×2 (01:39→10:15)
[2023-03-26] MEDS: Morphine 2 MG/ML VIAL SLOW IVP PRN (05:18)
[2023-03-26] MEDS: Ondansetron PF 4 MG/2 ML Vial IVP PRN ×2 (05:18→12:33)
[2023-03-26 05:53] LABS: #Eosinphils 0.2 thou/uL (0.0-0.7); #Neutrophils 4.5 thou/uL (1.40-6.50); %Basophils 0.3 % (0.0-1.0); %Eosinophils 2.6 % (0.0-10.0); %Lymphocytes 21.2 % (21.0-51.0); %Monocytes 13.8 % (0.0-10.0); Hematocrit 41.8 % (42.0-52.0); Hemoglobin 13.5 g/dL (14.0-18.0); Mean Corpuscular HGB CONC 32.3 g/dL (32.0-36.0); Mean Corpuscular Hemoglobin 30.8 pg (27.0-31.0); Mean Platelet Volume 9.6 fL (7.4-10.4); Platelet Count 153 10x3/uL (130-400); RBC Distribution Width 12.4 % (11.5-14.5); Red Blood Cell (RBC) Count 4.39 mill/uL (4.70-6.10); White Blood Cell (WBC) Count 7.2 10x3/uL (4.8-10.8)
[2023-03-26 06:09] LABS: Mean Corpuscular Volume 95.2 fl (78.0-98.0)
[2023-03-26 06:12] LABS: Anion Gap 13 mmol/L (10-20); BUN (Urea Nitrogen) 16 mg/dL (8.4-25.7); Calc. Creatinine Clearance 124 mL/min (70-130); Calcium 8.6 mg/dL (7.8-10.44); Carbon Dioxide 25 mmol/L (23-31); Chloride 102 mmol/L (98-107); Estimated GFR 101; Glucose 93 mg/dL (80-115); Potassium 3.8 mmol/L (3.5-5.1); Sodium 136 mmol/L (136-145)
[2023-03-26] MEDS ORDERED: hydrALAZINE 20 MG/ML VIAL SLOW IVP PRN (09:26)
[2023-03-26] MEDS ORDERED: hydrALAZINE 20 MG/ML VIAL SLOW IVP SCH (09:45)
[2023-03-26] MEDS ORDERED: Lisinopril 20 MG TAB PO SCH ×2 (09:45→21:00)
[2023-03-26 17:27] VITALS: BP 162/89; TEMP 98.8
== END 2023-03-26 14:53 | disposition home or self-care (01) ==
LOC: ERS 04:45 → T4-A 10:18
PROVIDERS: ADMIT Internal Medicine; ATTEND Family Medicine
DX: K56.600 Partial intestinal obstruction, unspecified as to cause (principal); E11.9 Type 2 diabetes mellitus without complications; I16.0 Hypertensive urgency; F17.210 Nicotine dependence, cigarettes, uncomplicated; Z98.890 Other specified postprocedural states; Z79.899 Other long term (current) drug therapy; Z79.84 Long term (current) use of oral hypoglycemic drugs
CPT/HCPCS: 36415; 36416; 71045; 74177; 80048; 80053; 80307; 81001; 83605; 83690; 83735; 83880; 84484; 85025; 93005; 93306; 96372; 96374; 96375; 96376; C9113; G0378; J1650; J2272; J2405; J7050; Q9967

== ENCOUNTER 2023-07-05 19:44 | Emergency (ER) | payer OTHER ==
[2023-07-05 20:20] LABS: #Eosinphils 0.2 thou/uL (0.0-0.7); #Monocytes 0.6 thou/uL (0.11-0.59); #Neutrophils 6.3 thou/uL (1.40-6.50); %Basophils 0.5 % (0.0-1.0); %Eosinophils 2.1 % (0.0-10.0); %Lymphocytes 15.9 % (21.0-51.0); %Monocytes 6.9 % (0.0-10.0); %Neutrophils 74.4 % (42.0-75.0); Hematocrit 41.9 % (42.0-52.0); Hemoglobin 14.3 g/dL (14.0-18.0); Mean Corpuscular HGB CONC 34.1 g/dL (32.0-36.0); Mean Corpuscular Hemoglobin 30.4 pg (27.0-31.0); Mean Platelet Volume 9.4 fL (7.4-10.4); Platelet Count 252 10x3/uL (130-400); RBC Distribution Width 12.5 % (11.5-14.5); Red Blood Cell (RBC) Count 4.71 mill/uL (4.70-6.10); White Blood Cell (WBC) Count 8.4 10x3/uL (4.8-10.8)
[2023-07-05 20:38] LABS: ALT (SGPT) 10 U/L (8-55); AST (SGOT) 13 U/L (5-34); Albumin 4.1 g/dL (3.4-4.8); Alkaline Phosphatase 91 U/L (40-110); Anion Gap 12 mmol/L (10-20); BUN (Urea Nitrogen) 22 mg/dL (8.4-25.7); Bilirubin, Total 1.2 mg/dL (0.2-1.2); Calc. Creatinine Clearance 0 mL/min (70-130); Calcium 9.3 mg/dL (7.8-10.44); Carbon Dioxide 27 mmol/L (23-31); Chloride 102 mmol/L (98-107); Estimated GFR 86; Globulin 3.4 g/dL (2.4-3.5); Glucose 127 mg/dL (80-115); Protein, Total 7.5 g/dL (5.8-8.1); Sodium 137 mmol/L (136-145)
[2023-07-05 21:06] LABS: Troponin I 0.019 ng/mL (< 0.028)
[2023-07-05] MEDS ORDERED: Ondansetron PF 4 MG/2 ML Vial ONE (21:51)
[2023-07-05] MEDS ORDERED: Ketorolac Tromethamine 30 MG (1 mL) VIAL ONE (21:51)
[2023-07-05 22:08] LABS: Influenza A by NAA Not Detected (NotDetected); Influenza B by NAA Not Detected (NotDetected); SARS-CoV-2 NAA Rapid Test Not Detected (NotDetected)
[2023-07-06] MEDS ORDERED: Ondansetron ODT 4 MG TAB ONE (00:38)
== END 2023-07-06 00:41 | disposition home or self-care (01) ==
LOC: ERS 19:44
DX: K56.7 Ileus, unspecified (principal); K65.4 Sclerosing mesenteritis; K86.89 Other specified diseases of pancreas; I10 Essential (primary) hypertension; M48.00 Spinal stenosis, site unspecified; E11.9 Type 2 diabetes mellitus without complications; F17.210 Nicotine dependence, cigarettes, uncomplicated; E78.00 Pure hypercholesterolemia, unspecified
CPT/HCPCS: 36415; 71045; 74176; 80053; 83690; 84484; 85025; 93005; 96361; 96374; 96375; J1885; J2405; Q0162

== ENCOUNTER 2023-09-03 22:52 | Emergency (ER) | payer OTHER ==
[2023-09-04] MEDS ORDERED: Amlodipine 5 MG TAB ONE (00:47)
== END 2023-09-04 01:50 | disposition home or self-care (01) ==
LOC: EEVIPCON 22:52 → ERS 22:52
DX: I10 Essential (primary) hypertension (principal); E11.9 Type 2 diabetes mellitus without complications; F17.290 Nicotine dependence, other tobacco product, uncomplicated; Z55.6 Problems related to health literacy
CPT/HCPCS: 99283